=== PATIENT | female | born 1975 | race Caucasian/White ===

== ENCOUNTER → 2016-07-05 | Outpatient (CLI) | payer OTHER, BC | LOC: M LAB 14:21 | PROVIDERS: ATTEND Nurse Practitioner Family | DX: N39.0 Urinary tract infection, site not specified (principal) ==

== ENCOUNTER → 2018-01-17 | Outpatient (REF) | payer OTHER, BC | LOC: M LAB REF 18:44 | DX: R30.0 Dysuria (principal) ==

== ENCOUNTER → 2018-02-13 | Outpatient (CLI) | payer OTHER | LOC: M RAD 12:07 | DX: Z12.31 Encounter for screening mammogram for malignant neoplasm of breast (principal); N60.31 Fibrosclerosis of right breast; N60.32 Fibrosclerosis of left breast | CPT/HCPCS: 77067 ==

== ENCOUNTER → 2018-09-17 | Outpatient (CLI) | payer OTHER ==
[~2018-09-17] MED LIST: PROHANCE 279.3MG/ML 15ML VIAL (A9576) As Ordered ONE
--- NOTE | 2018-09-17 11:59 | REP ---
MR BILATERAL BREASTS WITH AND WITHOUT CONTRAST: There is a family history of breast cancer with lifetime risk of breast cancer 24.5%. Correlation made with mammogram 02/13/2018, which showed no significant finding. TECHNIQUE: Multiple sequences are obtained in the axial, coronal and sagittal planes prior to and following the intravenous administration of 50 mL ProHance. Images are evaluated with the [employer] software. Pre- and post contrast T1 fat sat images are performed in the dynamic fashion. Subtraction images are evaluated. Color overlay and CAD images are evaluated as well as MIP reconstruction images. Moderate amount of dense fibroglandular tissue is seen symmetrically bilaterally. There is mild to moderate scattered background parenchymal enhancement. Multiple subcentimeter cystic structures are seen throughout both breasts. Cluster of subcentimeter cysts in the upper outer quadrant of the right breast demonstrates hyperintensity on T1 fat sat images without contrast indicating proteinaceous or hemorrhagic cysts. A round enhancing nodule is seen in the upper outer quadrant of the right breast posteriorly. This measures 4 mm and appears fairly well circumscribed. The enhancement pattern is type 1 and the findings are most consistent with a small fibroadenoma. No spiculated mass or morphologic abnormality is seen. No axillary adenopathy is seen. IMPRESSION: BIRADS category 2 benign bilateral breast MRI. Bilaterally dense breasts with moderate amount of fibroglandular tissue. Multiple subcentimeter cysts bilaterally. Enhancing nodule in the posterior upper outer quadrant of the right breast measures 4 mm and demonstrates characteristics most consistent with a benign fibroadenoma. No suspicious mass is seen bilaterally. Continued supplemental screening breast MRI is recommended yearly for patient's with elevated lifetime risk of breast cancer over 20%. Electronically Signed by Dakotah Estrada MD 09/21/2018 01:44 P
== END ==
LOC: M RAD 08:37
PROVIDERS: ATTEND Family Medicine
DX: Z12.39 Encounter for other screening for malignant neoplasm of breast (principal)
CPT/HCPCS: A9576; C8908

== ENCOUNTER → 2019-04-30 | Outpatient (CLI) | payer OTHER ==
--- NOTE | 2019-04-30 18:40 | REPMRS ---
Patient History The patient states she has not had a clinical breast exam in over a year. Family history of breast cancer at age 73 in mother, unknown cancer at age 50 or over in maternal grandmother. Taking hormonal contraceptives for 17 years. Digital Woman Screen Mammo: April 30, 2019 - Exam #: [id number] Bilateral CC and MLO view(s) were taken. Technologist: Ciera Lowe, Technologist Prior study comparison: February 13, 2018, bilateral digital mammo screening bilat, performed at [facility]. February 02, 2016, bilateral digital mammo screening bilat, performed at [facility]. January 06, 2015, bilateral digital mammo screening bilat, performed at [facility]. FINDINGS: The breast tissue is heterogeneously dense. This may lower the sensitivity of mammography. There is a moderate amount of heterogeneously dense fibroglandular tissue which is fairly symmetric. There is no interval development of dominant mass, architectural distortion, or grouped microcalcification typical of malignancy. There has been no change in the appearance of the mammogram from the prior studies. 3-D tomosynthesis shows no additional findings. Assessment: BI-RADS/ACR category 1 mammogram. Negative Mammogram. Recommendation Breast MRI of both breasts in 6 months. Routine screening mammogram of both breasts in 1 year (for women over age 40). This patient's Lifetime Breast Cancer RIsk is estimated at 24.3 %. Annual screening Breast MRI scanniing is recommended for patient's whose lifetime risk assessment is over 20%. This mammogram was interpreted with the aid of an FDA-approved computer-aided dectection system. Electronically Signed By: Solomon Melendez MD 04/30/19 [id number]
== END ==
LOC: M WHC 13:13
PROVIDERS: ATTEND Family Medicine
DX: Z12.31 Encounter for screening mammogram for malignant neoplasm of breast (principal); Z80.3 Family history of malignant neoplasm of breast; Z92.0 Personal history of contraception

== ENCOUNTER → 2019-12-31 | Outpatient (CLI) | payer OTHER ==
[~2019-12-31] MED LIST changes: -PROHANCE 279.3MG/ML 15ML VIAL (A9576) As Ordered ONE; +PROHANCE 279.3MG/ML 15ML VIAL As Ordered ONE; +PROHANCE 279.3MG/ML 5ML VIAL As Ordered ONE
--- NOTE | 2020-01-06 10:06 | REP ---
BILATERAL BREAST MRI STUDY WITHOUT AND WITH INTRAVENOUS (IV) GADOLINIUM HISTORY: Dense breast tissue on conventional imaging. Positive family history of breast carcinoma. Elevated Tyrer-zick breast cancer risk assessment 24.3%. COMPARISON: Mammography 04/30/2019. Breast MRI study from . TECHNIQUE: Axial, coronal, and sagittal imaging planes are utilized. T1 and T2- weighted sequences are included with and without fat saturation. Dynamically acquired sequential postcontrast images are acquired. This study is interpreted with the aid of an FDA approved computer-aided detection device (Civi[employer]). CONTRAST ENHANCEMENT DOSE: 16 mL of intravenous ProHance. MRI FINDINGS: There is an extensive pattern of fibroglandular tissue again seen bilaterally corresponding with the dense tissue seen mammographically. There are scattered subcentimeter cysts. There is no evidence of axillary lymphadenopathy on either side. High resolution pre- and postcontrast T1 and T2-weighted scans show no suspicious morphologic abnormality in either breast. Dynamically-acquired postcontrast images demonstrate a mild pattern of background parenchymal enhancement with multiple foci of contrast enhancement. The previously described 4-mm focus of enhancement in the right breast is again seen unchanged. Subtraction images are unremarkable and unchanged. IMPRESSION: Stable BI-RADS Category 2 benign findings. MTDD
== END ==
LOC: M RAD 12:31
PROVIDERS: ATTEND Family Medicine
DX: N60.31 Fibrosclerosis of right breast (principal); N60.32 Fibrosclerosis of left breast
CPT/HCPCS: A9576; C8908

== ENCOUNTER → 2020-05-19 | Outpatient (CLI) | payer OTHER ==
--- NOTE | 2020-05-19 15:14 | REPMRS ---
Patient History The patient states she had a clinical breast exam in 05/2019 Patient is nulliparous. Family history of breast cancer at age 73 in mother, unknown cancer at age 50 or over in maternal grandmother. Taking hormonal contraceptives for 18 years. Digital Woman Screen Mammo: May 19, 2020 - Exam #: [id number] Bilateral CC and MLO view(s) were taken. Technologist: Alanis Stout, Technologist Prior study comparison: April 30, 2019, bilateral digital woman screen mammo performed at [facility] [place] [facility]. September 17, 2018, bilateral breast MRI, performed at [facility]. February 13, 2018, bilateral digital mammo screening bilat, performed at [facility]. FINDINGS: There are scattered fibroglandular densities. The Volpara volumetric breast density category is: B. There is a moderate amount of residual fibroglandular tissue which is fairly symmetric. There is no interval development of dominant mass, architectural distortion, or grouped microcalcification typical of malignancy. There has been no change in the appearance of the mammogram from the prior studies. 3-D tomosynthesis shows no additional findings. Assessment: BI-RADS/ACR category 1 mammogram. Negative Mammogram. Recommendation Breast MRI of both breasts in 6 months. Routine screening mammogram of both breasts in 1 year (for women over age 40). This patient's [facility] Lifetime Breast Cancer Risk is estimated at 24.0 %. Annual screening Breast MRI scanniing is recommended for patient's whose lifetime risk assessment is over 20%. This mammogram was interpreted with the aid of an FDA-approved computer-aided dectection system. Electronically Signed By: Solomon Melendez MD 05/19/20 [id number]
== END ==
LOC: M WHC 14:11
PROVIDERS: ATTEND Family Medicine
DX: Z12.31 Encounter for screening mammogram for malignant neoplasm of breast (principal); Z80.3 Family history of malignant neoplasm of breast; Z92.0 Personal history of contraception

== ENCOUNTER → 2020-12-11 | Outpatient (CLI) | payer OTHER ==
--- NOTE | 2020-12-11 17:18 | REP ---
INDICATION: HIGH RISK BREAST CA SCREENING. COMPARISON: Mammogram 05/19/2020, MRI 12/31/2019. TECHNIQUE: Three Maryann MRI imaging was performed with a dedicated breast coil. Axial, coronal, and sagittal T1 and T2 weighted scans were obtained with and without fat saturation in the usual fashion. The study includes dynamically acquired post gadolinium-enhanced imaging with image subtraction. Maximum intensity projection and multi planar reformation imaging is included as well. This study is interpreted with the aid of [employer], an FDA approved computer aided detection (CAD) software program, on a dedicated breast MRI workstation. The gadolinium enhancement dose is 16 mL of intravenous ProHance. FINDINGS: There is moderate fibroglandular tissue present bilaterally. There is no axillary adenopathy. Several subcentimeter cysts are scattered bilaterally. There is mild background parenchymal enhancement bilaterally. There is no suspicious enhancing mass or morphologic abnormality. There is no change since the prior exam. IMPRESSION: BI-RADS category 2 benign bilateral breast MRI. No suspicious enhancing mass or morphologic abnormality. Yearly supplemental screening MRI of the breasts is recommended for patients with an elevated lifetime risk of breast cancer of 20% or greater, in addition to annual screening mammography, staggered every 6 months. <Electronically signed by Dakotah Estrada > 12/11/20 [id number]
== END ==
LOC: M RAD 12:45
PROVIDERS: ATTEND Family Medicine
DX: Z12.31 Encounter for screening mammogram for malignant neoplasm of breast (principal); N60.01 Solitary cyst of right breast; N60.02 Solitary cyst of left breast
CPT/HCPCS: A9576; C8908

== ENCOUNTER → 2021-05-09 | Outpatient (REF) | LOC: M LABSMTC 09:07 | PROVIDERS: ATTEND Pediatrics | DX: Z11.52 Encounter for screening for COVID-19 (principal); Z20.822 Contact with and (suspected) exposure to COVID-19 ==

== ENCOUNTER → 2021-07-13 | Outpatient (CLI) | payer OTHER | LOC: M WHC 14:53 | PROVIDERS: ATTEND Family Medicine | DX: Z12.31 Encounter for screening mammogram for malignant neoplasm of breast (principal) ==

== ENCOUNTER → 2022-01-04 | Outpatient (CLI) | payer OTHER | LOC: M RAD 15:29 | PROVIDERS: ATTEND Family Medicine | DX: Z12.31 Encounter for screening mammogram for malignant neoplasm of breast (principal); Z80.3 Family history of malignant neoplasm of breast; N60.09 Solitary cyst of unspecified breast | CPT/HCPCS: A9576; C8908 ==

== ENCOUNTER → 2022-08-09 | Outpatient (CLI) | payer OTHER | LOC: M WHC 12:37 | PROVIDERS: ATTEND Nurse Practitioner Family | DX: Z12.31 Encounter for screening mammogram for malignant neoplasm of breast (principal) ==

== ENCOUNTER → 2023-08-27 | Outpatient (CLI) | payer OTHER | LOC: M WHC 07:46 | PROVIDERS: ATTEND Nurse Practitioner Family | DX: Z12.31 Encounter for screening mammogram for malignant neoplasm of breast (principal) ==